=== PATIENT | female | born 1965 | race Caucasian/White ===

== ENCOUNTER 2017-12-07 21:44 | Inpatient (IN) | payer OTHER ==
[2017-12-07] MEDS: ACETAMINOPHEN 650MG/20.3ML CUP NGT (22:23)
[2017-12-07] MEDS: CEFEPIME 2GM/50 ML (PMX) 50 ML IVPB (22:23)
[2017-12-07] MEDS: SODIUM CHLORIDE 0.9% 1L BAG IV* (22:23)
[2017-12-07] MEDS: VANCOMYCIN 1 GM (PMX) 250 ML IVPB (22:24)
[2017-12-07 22:29] LABS: ADD MAN DIFF? NO
[2017-12-07 22:31] LABS: WHITE BLOOD COUNT 15.1 10^3/ul (4.8-10.8)
[2017-12-07 22:31] LABS: BASOPHILS % 0.2 % (0.0-2.0); EOSINOPHILS # 0.1 10^3/ul (0.0-0.5); EOSINOPHILS % 0.4 % (0.0-7.0); HEMATOCRIT 35.8 % (37.0-47.0); HEMOGLOBIN 11.4 g/dl (12.0-16.0); LYMPHOCYTES % 19.8 % (15.0-51.0); MEAN CORPUSCULAR HEMOGLOBIN 27.3 pg (29.0-33.0); MEAN CORPUSCULAR HGB CONC 31.8 g/dl (32.0-37.0); MEAN CORPUSCULAR VOLUME 85.6 fl (82.0-101.0); MEAN PLATELET VOLUME 12.2 fl (7.4-10.4); MONOCYTE # 0.9 10^3/ul (0.3-0.9); NEUTROPHIL # 10.9 10^3/ul (1.6-7.5); NEUTROPHILS % 72.1 % (39.0-77.0); PLATELET COUNT 290 10^3/UL (140-415); RED BLOOD COUNT 4.18 10^6/ul (4.20-5.40); RED CELL DISTRIBUTION WIDTH 18.2 % (11.5-14.5)
[2017-12-07 22:45] LABS: INR 1.11; PROTIME 14.5 Sec (11.9-14.9); PT RATIO 1.1
[2017-12-07 22:46] LABS: PARTIAL THROMBOPLASTIN TIME 37.4 Sec (25.0-35.0)
[2017-12-07 22:56] LABS: LACTIC ACID 1.4 mmol/L (0.5-2.0)
[2017-12-07 23:09] LABS: TROPONIN-I 0.016 ng/ml (0.000-0.120)
[2017-12-07] MEDS: NORepinephrine 8MG/250 ML (PMX 250 ML IV (23:17)
[2017-12-07 23:18] LABS: ALANINE AMINOTRANSFERASE 74 IU/L (13-69); ALBUMIN/GLOBULIN RATIO 1.17; ALKALINE PHOSPHATASE 167 IU/L (42-121); ANION GAP 23 (8-16); ASPARTATE AMINO TRANSFERASE 51 IU/L (15-46); BILIRUBIN,INDIRECT 0.5 mg/dl (0-1.1); BILIRUBIN,TOTAL 0.5 mg/dl (0.2-1.3); BLOOD UREA NITROGEN 75 mg/dl (7-20); CALCIUM 9.8 mg/dl (8.4-10.2); CARBON DIOXIDE 26 mmol/L (21-31); CHLORIDE 98 mmol/L (97-110); CREATININE 2.54 mg/dl (0.44-1.00); GLUCOSE 127 mg/dl (70-220); SODIUM 140 mmol/L (135-144); TOTAL PROTEIN 7.4 g/dl (6.1-8.1)
[2017-12-07 23:29] LABS: AADO2 Arterial 156.4 mmHg (7.0-24.0); Arterial Blood Gas Oxygen Sat 97.1 mmHG (95.0-98.0); Arterial COHb 0.1 % (0.0-3.0); Arterial Fraction of Oxyhgb 96.6 % (93.0-99.0); Arterial HCO3 27.9 mmol/L (22.0-26.0); Arterial MetHb 0.4 % (0.0-1.5); Arterial Total Hemglobin 11.3 g/dl (12.0-18.0); Arterial pCO2 55.1 mmhg (35-45); MODE T-PIECE; Site LB
[2017-12-07 23:39] LABS: POTASSIUM 6.7 mmol/L (3.5-5.1)
[2017-12-07] MEDS: NA BICARBONATE 8.4% 50 ML SYG IV (23:49)
[2017-12-07] MEDS: CA CHLORIDE 10% 10 ML SYRINGE IV (23:49)
[2017-12-08] MEDS ORDERED: ALBUTEROL HFA 8 GM INHALER INH
[2017-12-08] MEDS ORDERED: IPRATROPIUM (HFA) 12.9 GM INHALER INH
[2017-12-08] MEDS ORDERED: NORepinephrine 8MG/250 ML (PMX 250 ML IV
[2017-12-08] MEDS ORDERED: ONDANSETRON 4 MG INJ IV
[2017-12-08 00:05] LABS: ADD UMIC YES; UR ASCORBIC ACID 40 mg/dL (NEGATIVE); UR BILIRUBIN (Dip) NEGATIVE (NEGATIVE); UR BLOOD (Dip) NEGATIVE (NEGATIVE); UR CLARITY SLIGHTLY CLOUDY (CLEAR); UR COLOR YELLOW (YELLOW); UR GLUCOSE (Dip) NEGATIVE (NEGATIVE); UR KETONES (Dip) NEGATIVE (NEGATIVE); UR LEUKOCYTE ESTERASE (Dip) NEGATIVE Leu/ul (NEGATIVE); UR NITRITE (Dip) NEGATIVE (NEGATIVE); UR RBC 0 /HPF (0-5); UR SPECIFIC GRAVITY (Dip) 1.017 (1.003-1.030); UR SQUAMOUS EPITHELIAL CELL FEW /HPF (FEW); UR TOTAL PROTEIN (Dip) 1+ mg/dl (NEGATIVE); UR UROBILINOGEN (Dip) NEGATIVE (NEGATIVE); UR WBC 2 /HPF (0-5)
[2017-12-08 00:26] LABS: LACTIC ACID 0.9 mmol/L (0.5-2.0)
[2017-12-08] MEDS: SOD CHLORIDE 0.9% 1,000 ML IV (00:45)
[2017-12-08 02:19] LABS: ADD MAN DIFF? NO
[2017-12-08 02:20] LABS: BASOPHILS % 0.2 % (0.0-2.0); EOSINOPHILS # 0.1 10^3/ul (0.0-0.5); EOSINOPHILS % 0.6 % (0.0-7.0); HEMATOCRIT 32.9 % (37.0-47.0); HEMOGLOBIN 10.1 g/dl (12.0-16.0); LYMPHOCYTES % 15.9 % (15.0-51.0); MEAN CORPUSCULAR HEMOGLOBIN 26.7 pg (29.0-33.0); MEAN CORPUSCULAR HGB CONC 30.7 g/dl (32.0-37.0); MEAN PLATELET VOLUME 11.5 fl (7.4-10.4); MONOCYTE # 0.4 10^3/ul (0.3-0.9); MONOCYTES % 3.1 % (0.0-11.0); NEUTROPHIL # 9.9 10^3/ul (1.6-7.5); NEUTROPHILS % 78.5 % (39.0-77.0); PLATELET COUNT 277 10^3/UL (140-415); RED BLOOD COUNT 3.78 10^6/ul (4.20-5.40); RED CELL DISTRIBUTION WIDTH 18.2 % (11.5-14.5)
[2017-12-08 02:20] LABS: WHITE BLOOD COUNT 12.6 10^3/ul (4.8-10.8)
[2017-12-08 02:41] LABS: LACTIC ACID 1.4 mmol/L (0.5-2.0)
[2017-12-08 02:44] LABS: IRON 22 ug/dl (35-150)
[2017-12-08 02:46] LABS: ALANINE AMINOTRANSFERASE 74 IU/L (13-69); ALBUMIN 3.4 g/dl (3.3-4.9); ALKALINE PHOSPHATASE 144 IU/L (42-121); ANION GAP 15 (8-16); ASPARTATE AMINO TRANSFERASE 39 IU/L (15-46); BILIRUBIN,INDIRECT 0.7 mg/dl (0-1.1); BILIRUBIN,TOTAL 0.7 mg/dl (0.2-1.3); BLOOD UREA NITROGEN 57 mg/dl (7-20); CALCIUM 9.3 mg/dl (8.4-10.2); CARBON DIOXIDE 25 mmol/L (21-31); CHLORIDE 108 mmol/L (97-110); CREATININE 1.78 mg/dl (0.44-1.00); GLUCOSE 134 mg/dl (70-220); MAGNESIUM 2.3 mg/dl (1.7-2.5); PHOSPHORUS 6.7 mg/dl (2.5-4.9); POTASSIUM 5.4 mmol/L (3.5-5.1); SODIUM 143 mmol/L (135-144); TOTAL PROTEIN 6.8 g/dl (6.1-8.1)
[2017-12-08 02:53] LABS: % IRON SATURATION 9 % SAT (22-52); TOTAL IRON BINDING CAPACITY 258 ug/dl (241-421)
[2017-12-08 03:50] LABS: HEMOGLOBIN A1C 5.9 % (0-5.9)
[2017-12-08 04:55] LABS: POTASSIUM,URINE RANDOM 22.4 mmol/L (25-125)
[2017-12-08 04:55] LABS: SODIUM,URINE RANDOM 35 mmol/L (30-90)
[2017-12-08] MEDS: VANCOMYCIN 1 GM 250 ML IVPB (05:03)
[2017-12-08] MEDS: ACETAMINOPHEN 650MG/20.3ML CUP PO ×2 (07:52→14:07)
[2017-12-08] MEDS ORDERED: CEFEPIME 1GM/50 ML (PMX) 50 ML IVPB (09:00)
[2017-12-08] MEDS ORDERED: VANCOMYCIN IV PER PHARMACY XX (09:00)
[2017-12-08] MEDS: CEFEPIME 1GM/50 ML (PMX) 50 ML IVPB ×2 (09:08→20:52)
[2017-12-08] MEDS: FAMOTIDINE 20 MG INJ IV (09:08)
[2017-12-08] MEDS: HEPARIN 5,000 UNIT/0.5 ML VIAL SC ×2 (09:17→20:52)
[2017-12-08] MEDS: PHENYLephrine 40 MG in DEXTROSE 5% 496 ML IV (09:46)
[2017-12-08] MEDS ORDERED: DEXTROSE 50% 50 ML SYRINGE IV ×2 (10:00)
[2017-12-08] MEDS ORDERED: GLUCOSE GEL 15 GRAM TUBE PO ×2 (10:00)
[2017-12-08] MEDS ORDERED: GLUCOSE GEL 15 GRAM TUBE BUCCAL (10:00)
[2017-12-08] MEDS ORDERED: GLUCAGON 1 MG INJ IM (10:00)
[2017-12-08] MEDS: NA POLYST SULFON 15 GM/60 ML BTL PO ×2 (10:10)
[2017-12-08 11:21] LABS: HEMOGLOBIN A1C 5.9 % (0-5.9)
[2017-12-08 11:29] LABS: CHOLESTEROL 112 mg/dl (100-200)
[2017-12-08 11:29] LABS: CHOL/HDL RATIO 4.1 RATIO; HDL CHOLESTEROL 27 mg/dl (37-92); LDL CHOLESTEROL,CALCULATED 64 mg/dl; TRIGLYCERIDES 107 mg/dl (0-149)
[2017-12-08] MEDS: INSULIN ASPART [NOVOLOG] 3 ML PEN SC ×3 (12:54→21:00)
[2017-12-08] MEDS: LACTATED RINGER'S 1,000 ML IV ×3 (13:11→21:56)
[2017-12-08] MEDS: AZITHROMYCIN 250 MG in SOD CHLORIDE 0.9% 250 ML IVPB (15:37)
[2017-12-09] MEDS: INSULIN ASPART [NOVOLOG] 3 ML PEN SC ×6 (01:00→21:00)
[2017-12-09] MEDS: ACCU-CHEK XX (02:01)
[2017-12-09] MEDS: LACTATED RINGER'S 1,000 ML IV ×4 (04:34→22:30)
[2017-12-09 05:05] LABS: ADD MAN DIFF? NO
[2017-12-09 05:07] LABS: AADO2 Arterial 134.3 mmHg (7.0-24.0); Arterial Base Excess 3.2 mmol/L (-3.0-3); Arterial Blood Gas Oxygen Sat 94.7 mmHG (95.0-98.0); Arterial COHb 0.9 % (0.0-3.0); Arterial Fraction of Oxyhgb 93.6 % (93.0-99.0); Arterial HCO3 31.1 mmol/L (22.0-26.0); Arterial MetHb 0.3 % (0.0-1.5); Arterial Total Hemglobin 13.2 g/dl (12.0-18.0); Arterial pCO2 63.1 mmhg (35-45); MODE TRACH COLLAR; Site LB
[2017-12-09 05:25] LABS: WHITE BLOOD COUNT 9.1 10^3/ul (4.8-10.8)
[2017-12-09 05:25] LABS: BASOPHILS % 0.1 % (0.0-2.0); EOSINOPHILS # 0.4 10^3/ul (0.0-0.5); EOSINOPHILS % 4.2 % (0.0-7.0); HEMATOCRIT 27.7 % (37.0-47.0); HEMOGLOBIN 8.3 g/dl (12.0-16.0); LYMPHOCYTES # 1.3 10^3/ul (0.8-2.9); LYMPHOCYTES % 13.8 % (15.0-51.0); MEAN CORPUSCULAR HEMOGLOBIN 27.1 pg (29.0-33.0); MEAN CORPUSCULAR VOLUME 90.5 fl (82.0-101.0); MEAN PLATELET VOLUME 12.4 fl (7.4-10.4); MONOCYTE # 0.4 10^3/ul (0.3-0.9); MONOCYTES % 4.5 % (0.0-11.0); NEUTROPHILS % 76.7 % (39.0-77.0); PLATELET COUNT 213 10^3/UL (140-415); RED BLOOD COUNT 3.06 10^6/ul (4.20-5.40); RED CELL DISTRIBUTION WIDTH 18.5 % (11.5-14.5)
[2017-12-09 05:29] LABS: LACTIC ACID 0.7 mmol/L (0.5-2.0)
[2017-12-09 05:53] LABS: ALANINE AMINOTRANSFERASE 59 IU/L (13-69); ALBUMIN 3.2 g/dl (3.3-4.9); ALKALINE PHOSPHATASE 112 IU/L (42-121); ANION GAP 9 (8-16); ASPARTATE AMINO TRANSFERASE 39 IU/L (15-46); BILIRUBIN,INDIRECT 0.2 mg/dl (0-1.1); BILIRUBIN,TOTAL 0.2 mg/dl (0.2-1.3); BLOOD UREA NITROGEN 19 mg/dl (7-20); CALCIUM 8.7 mg/dl (8.4-10.2); CARBON DIOXIDE 33 mmol/L (21-31); CHLORIDE 106 mmol/L (97-110); CREATININE 0.71 mg/dl (0.44-1.00); GLUCOSE 103 mg/dl (70-220); POTASSIUM 3.9 mmol/L (3.5-5.1); SODIUM 144 mmol/L (135-144); TOTAL PROTEIN 6.4 g/dl (6.1-8.1)
[2017-12-09 06:06] LABS: FREE THYROXINE INDEX (Calc) 1.24 ug/ml (0.65-3.89); T3 UPTAKE 32.5 % (23.5-40.5); T4 (THYROXINE) 3.8 ug/dl (5.5-11.0)
[2017-12-09] MEDS: VANCOMYCIN 1.5 GM in SOD CHLORIDE 0.9% 250 ML IVPB (06:21)
[2017-12-09 06:53] LABS: PHOSPHORUS 2.9 mg/dl (2.5-4.9)
[2017-12-09] MEDS: CEFEPIME 1GM/50 ML (PMX) 50 ML IVPB ×2 (08:16→21:22)
[2017-12-09] MEDS: FAMOTIDINE 20 MG INJ IV (08:16)
[2017-12-09] MEDS: HEPARIN 5,000 UNIT/0.5 ML VIAL SC ×2 (08:20→21:23)
[2017-12-09 09:01] LABS: AADO2 Arterial 194.7 mmHg (7.0-24.0); Allen Test ACCEPTAB; Arterial Base Excess 5.6 mmol/L (-3.0-3); Arterial Blood Gas Oxygen Sat 97.8 mmHG (95.0-98.0); Arterial COHb 0.3 % (0.0-3.0); Arterial Fraction of Oxyhgb 97.2 % (93.0-99.0); Arterial HCO3 30.9 mmol/L (22.0-26.0); Arterial MetHb 0.3 % (0.0-1.5); Arterial Total Hemglobin 8.7 g/dl (12.0-18.0); Arterial pCO2 49.4 mmhg (35-45); MODE VENT - AC; Site Right Radial
[2017-12-09] MEDS: PHENYLephrine 40 MG in DEXTROSE 5% 496 ML IV (11:14)
[2017-12-09] MEDS: ACETAMINOPHEN 650MG/20.3ML CUP PO ×2 (12:48→21:21)
[2017-12-09] MEDS: AZITHROMYCIN 250 MG in SOD CHLORIDE 0.9% 250 ML IVPB (14:14)
[2017-12-09] MEDS: TOBRAMYCIN 0.3% 5 ML OPH BOTH EYES ×2 (16:53→21:22)
[2017-12-09] MEDS ORDERED: VANCOMYCIN 750 MG in SOD CHLORIDE 0.9% 150 ML IVPB (18:30)
[2017-12-09] MEDS ORDERED: FAMOTIDINE 20 MG INJ IV (21:00)
[2017-12-09] MEDS: FAMOTIDINE 20 MG TAB GTB (21:22)
[2017-12-10] MEDS: INSULIN ASPART [NOVOLOG] 3 ML PEN SC ×6 (01:00→21:00)
[2017-12-10] MEDS: ACCU-CHEK XX (01:20)
[2017-12-10 05:02] LABS: WHITE BLOOD COUNT 6.3 10^3/ul (4.8-10.8)
[2017-12-10 05:02] LABS: ADD MAN DIFF? NO; BASOPHILS % 0.2 % (0.0-2.0); EOSINOPHILS # 0.2 10^3/ul (0.0-0.5); EOSINOPHILS % 3.7 % (0.0-7.0); HEMATOCRIT 24.4 % (37.0-47.0); HEMOGLOBIN 7.4 g/dl (12.0-16.0); LYMPHOCYTES # 1.6 10^3/ul (0.8-2.9); MEAN CORPUSCULAR HEMOGLOBIN 26.6 pg (29.0-33.0); MEAN CORPUSCULAR HGB CONC 30.3 g/dl (32.0-37.0); MEAN CORPUSCULAR VOLUME 87.8 fl (82.0-101.0); MEAN PLATELET VOLUME 11.6 fl (7.4-10.4); MONOCYTE # 0.5 10^3/ul (0.3-0.9); MONOCYTES % 7.5 % (0.0-11.0); NEUTROPHIL # 3.9 10^3/ul (1.6-7.5); NEUTROPHILS % 62.1 % (39.0-77.0); PLATELET COUNT 184 10^3/UL (140-415); RED BLOOD COUNT 2.78 10^6/ul (4.20-5.40); RED CELL DISTRIBUTION WIDTH 17.7 % (11.5-14.5)
[2017-12-10 05:31] LABS: ANION GAP 7 (8-16); BLOOD UREA NITROGEN 12 mg/dl (7-20); CALCIUM 8.5 mg/dl (8.4-10.2); CARBON DIOXIDE 32 mmol/L (21-31); CHLORIDE 111 mmol/L (97-110); CREATININE 0.74 mg/dl (0.44-1.00); GLUCOSE 92 mg/dl (70-220); SODIUM 147 mmol/L (135-144)
[2017-12-10] MEDS: LACTATED RINGER'S 1,000 ML IV (05:51)
[2017-12-10] MEDS: CEFEPIME 1GM/50 ML (PMX) 50 ML IVPB (08:07)
[2017-12-10] MEDS: TOBRAMYCIN 0.3% 5 ML OPH BOTH EYES ×2 (08:07→21:00)
[2017-12-10] MEDS: HEPARIN 5,000 UNIT/0.5 ML VIAL SC ×2 (08:27→22:03)
[2017-12-10] MEDS: ACETAMINOPHEN 650MG/20.3ML CUP PO (11:25)
[2017-12-10] MEDS: POTASSIUM CHLORIDE (SR) 20 MEQ TAB PO (14:04)
[2017-12-10] MEDS: FAMOTIDINE 20 MG TAB GTB (22:01)
[2017-12-11] MEDS: INSULIN ASPART [NOVOLOG] 3 ML PEN SC ×5 (01:00→17:00)
[2017-12-11] MEDS: ACCU-CHEK XX (02:00)
[2017-12-11] MEDS ORDERED: hydrALAzine 20 MG INJ IV (06:00)
[2017-12-11] MEDS: LEVOFLOXACIN 750 MG TABLET GTB (06:35)
[2017-12-11 08:14] LABS: ADD MAN DIFF? NO
[2017-12-11 08:21] LABS: BASOPHILS % 0.1 % (0.0-2.0); EOSINOPHILS # 0.2 10^3/ul (0.0-0.5); HEMATOCRIT 26.5 % (37.0-47.0); HEMOGLOBIN 8.2 g/dl (12.0-16.0); LYMPHOCYTES % 28.5 % (15.0-51.0); MEAN CORPUSCULAR HGB CONC 30.9 g/dl (32.0-37.0); MEAN CORPUSCULAR VOLUME 87.2 fl (82.0-101.0); MEAN PLATELET VOLUME 12.5 fl (7.4-10.4); MONOCYTE # 0.5 10^3/ul (0.3-0.9); MONOCYTES % 6.6 % (0.0-11.0); NEUTROPHIL # 4.2 10^3/ul (1.6-7.5); NEUTROPHILS % 60.9 % (39.0-77.0); PLATELET COUNT 178 10^3/UL (140-415); RED BLOOD COUNT 3.04 10^6/ul (4.20-5.40); RED CELL DISTRIBUTION WIDTH 17.6 % (11.5-14.5)
[2017-12-11] MEDS: HEPARIN 5,000 UNIT/0.5 ML VIAL SC ×2 (08:37→21:57)
[2017-12-11 08:46] LABS: ANION GAP 12 (8-16); BLOOD UREA NITROGEN 10 mg/dl (7-20); CALCIUM 8.5 mg/dl (8.4-10.2); CARBON DIOXIDE 28 mmol/L (21-31); CHLORIDE 106 mmol/L (97-110); CREATININE 0.68 mg/dl (0.44-1.00); GLUCOSE 97 mg/dl (70-220); POTASSIUM 3.2 mmol/L (3.5-5.1); SODIUM 143 mmol/L (135-144)
[2017-12-11] MEDS: TOBRAMYCIN 0.3% 5 ML OPH BOTH EYES ×2 (09:00→21:00)
[2017-12-11] MEDS: ACETAMINOPHEN 650MG/20.3ML CUP PO ×2 (11:20→18:20)
[2017-12-11] MEDS: POTASSIUM CHLORIDE (SR) 20 MEQ TAB PO (11:20)
[2017-12-11] MEDS: PIPER-TAZO 3.375 GM IV (PMX) 100 ML IVPB ×2 (15:54→21:52)
[2017-12-11] MEDS: FAMOTIDINE 20 MG TAB GTB (21:53)
[2017-12-11] MEDS: SOD CHLORIDE 0.9% 500 ML IV (23:35)
[2017-12-12] MEDS: KETOROLAC 30 MG INJ IV (01:15)
[2017-12-12] MEDS: TOBRAMYCIN 0.3% 5 ML OPH BOTH EYES (01:23)
[2017-12-12] MEDS: ACCU-CHEK XX (02:00)
[2017-12-12] MEDS: INSULIN ASPART [NOVOLOG] 3 ML PEN SC ×4 (06:00→18:00)
[2017-12-12] MEDS: PIPER-TAZO 3.375 GM IV (PMX) 100 ML IVPB (06:36)
[2017-12-12] MEDS: LEVOFLOXACIN 750 MG TABLET GTB (06:36)
[2017-12-12] MEDS: ACETAMINOPHEN 650MG/20.3ML CUP PO ×2 (07:36→18:44)
[2017-12-12] MEDS: HEPARIN 5,000 UNIT/0.5 ML VIAL SC ×2 (09:00→21:00)
[2017-12-12 09:11] LABS: ADD MAN DIFF? NO
[2017-12-12 09:23] LABS: BASOPHILS % 0.3 % (0.0-2.0); EOSINOPHILS % 0.2 % (0.0-7.0); HEMOGLOBIN 9.8 g/dl (12.0-16.0); LYMPHOCYTES # 3.1 10^3/ul (0.8-2.9); LYMPHOCYTES % 22.8 % (15.0-51.0); MEAN CORPUSCULAR HEMOGLOBIN 27.2 pg (29.0-33.0); MEAN CORPUSCULAR HGB CONC 31.6 g/dl (32.0-37.0); MEAN CORPUSCULAR VOLUME 86.1 fl (82.0-101.0); MONOCYTE # 0.8 10^3/ul (0.3-0.9); MONOCYTES % 6.1 % (0.0-11.0); NEUTROPHIL # 9.4 10^3/ul (1.6-7.5); NEUTROPHILS % 69.6 % (39.0-77.0); NUCLEATED RED BLOOD CELLS # 0.1 10^3/ul (0.0-0.0); NUCLEATED RED BLOOD CELLS% 0.4 /100WBC (0.0-0.0); PLATELET COUNT 171 10^3/UL (140-415); RED CELL DISTRIBUTION WIDTH 17.2 % (11.5-14.5)
[2017-12-12 09:23] LABS: WHITE BLOOD COUNT 13.5 10^3/ul (4.8-10.8)
[2017-12-12 09:50] LABS: ANION GAP 16 (8-16); BLOOD UREA NITROGEN 16 mg/dl (7-20); CALCIUM 8.4 mg/dl (8.4-10.2); CARBON DIOXIDE 26 mmol/L (21-31); CHLORIDE 103 mmol/L (97-110); CREATININE 1.05 mg/dl (0.44-1.00); GLUCOSE 109 mg/dl (70-220); POTASSIUM 3.9 mmol/L (3.5-5.1); SODIUM 141 mmol/L (135-144)
[2017-12-12] MEDS ORDERED: VANCOMYCIN IV PER PHARMACY XX (11:30)
[2017-12-12] MEDS: VANCOMYCIN 1 GM 250 ML IVPB ×2 (13:00→15:06)
[2017-12-12] MEDS: SOD CHLORIDE 0.9% 100 ML (14:40)
[2017-12-12] MEDS: IOHEXOL 300MG/ML 150 ML BTL (14:40)
[2017-12-12] MEDS: metroNIDAZOLE 500 MG TAB PO ×2 (18:03→22:33)
[2017-12-12] MEDS: FAMOTIDINE 20 MG TAB GTB (22:32)
[2017-12-13] MEDS: VANCOMYCIN 750 MG in SOD CHLORIDE 0.9% 150 ML IVPB ×2 (00:54→12:15)
[2017-12-13] MEDS: TOBRAMYCIN 0.3% 5 ML OPH BOTH EYES ×3 (00:54→20:27)
[2017-12-13] MEDS: ACETAMINOPHEN 650MG/20.3ML CUP PO ×2 (01:48→20:28)
[2017-12-13] MEDS: ACCU-CHEK XX (02:00)
[2017-12-13] MEDS: ACETAMINOPHEN 650MG/20.3ML CUP NGT (04:53)
[2017-12-13] MEDS: INSULIN ASPART [NOVOLOG] 3 ML PEN SC ×4 (06:00→17:19)
[2017-12-13] MEDS: LEVOFLOXACIN 750 MG TABLET GTB (06:03)
[2017-12-13] MEDS: metroNIDAZOLE 500 MG TAB PO ×3 (06:03→22:28)
[2017-12-13 06:52] LABS: ADD MAN DIFF? NO
[2017-12-13 06:54] LABS: BASOPHILS % 0.4 % (0.0-2.0); EOSINOPHILS # 0.2 10^3/ul (0.0-0.5); EOSINOPHILS % 2.2 % (0.0-7.0); HEMATOCRIT 26.9 % (37.0-47.0); HEMOGLOBIN 8.4 g/dl (12.0-16.0); LYMPHOCYTES # 1.3 10^3/ul (0.8-2.9); LYMPHOCYTES % 15.2 % (15.0-51.0); MEAN CORPUSCULAR HEMOGLOBIN 26.9 pg (29.0-33.0); MEAN CORPUSCULAR HGB CONC 31.2 g/dl (32.0-37.0); MEAN CORPUSCULAR VOLUME 86.2 fl (82.0-101.0); MEAN PLATELET VOLUME 11.7 fl (7.4-10.4); MONOCYTE # 0.4 10^3/ul (0.3-0.9); MONOCYTES % 4.6 % (0.0-11.0); NEUTROPHIL # 6.4 10^3/ul (1.6-7.5); NEUTROPHILS % 76.8 % (39.0-77.0); NUCLEATED RED BLOOD CELLS% 0.2 /100WBC (0.0-0.0); RED BLOOD COUNT 3.12 10^6/ul (4.20-5.40); RED CELL DISTRIBUTION WIDTH 17.9 % (11.5-14.5)
[2017-12-13 06:54] LABS: WHITE BLOOD COUNT 8.3 10^3/ul (4.8-10.8)
[2017-12-13 07:01] LABS: PLATELET COUNT 126 10^3/UL (140-415)
[2017-12-13 07:21] LABS: ANION GAP 10 (8-16); BLOOD UREA NITROGEN 13 mg/dl (7-20); CALCIUM 8.8 mg/dl (8.4-10.2); CARBON DIOXIDE 26 mmol/L (21-31); CHLORIDE 109 mmol/L (97-110); CREATININE 0.72 mg/dl (0.44-1.00); GLUCOSE 111 mg/dl (70-220); POTASSIUM 3.4 mmol/L (3.5-5.1); SODIUM 142 mmol/L (135-144)
[2017-12-13 07:25] LABS: PHOSPHORUS 3.2 mg/dl (2.5-4.9)
[2017-12-13] MEDS: HEPARIN 5,000 UNIT/0.5 ML VIAL SC ×2 (09:32→20:31)
[2017-12-13] MEDS: POTASSIUM CHLORIDE 20 MEQ POWDER FOR ORAL SOLN GTB (18:17)
[2017-12-13] MEDS: FAMOTIDINE 20 MG TAB GTB (20:27)
[2017-12-13 23:59] LABS: VANCOMYCIN,TROUGH 9.3 ug/ml (10.0-20.0)
[2017-12-14] MEDS: VANCOMYCIN 1 GM 250 ML IVPB ×2 (01:00→11:51)
[2017-12-14] MEDS: ACCU-CHEK XX (01:06)
[2017-12-14] MEDS: INSULIN ASPART [NOVOLOG] 3 ML PEN SC ×4 (06:00→17:25)
[2017-12-14] MEDS: LEVOFLOXACIN 750 MG TABLET GTB (06:08)
[2017-12-14] MEDS: metroNIDAZOLE 500 MG TAB PO (06:08)
[2017-12-14] MEDS: TOBRAMYCIN 0.3% 5 ML OPH BOTH EYES ×2 (08:53→21:57)
[2017-12-14] MEDS: HEPARIN 5,000 UNIT/0.5 ML VIAL SC ×2 (09:05→21:59)
[2017-12-14] MEDS: ACETAMINOPHEN 650MG/20.3ML CUP PO (21:58)
[2017-12-14] MEDS: FAMOTIDINE 20 MG TAB GTB (21:58)
[2017-12-15] MEDS: VANCOMYCIN 1 GM 250 ML IVPB ×2 (01:57→12:11)
[2017-12-15] MEDS: ACCU-CHEK XX (02:01)
[2017-12-15] MEDS: LEVOFLOXACIN 750 MG TABLET GTB (05:37)
[2017-12-15] MEDS: INSULIN ASPART [NOVOLOG] 3 ML PEN SC ×4 (05:39→17:17)
[2017-12-15 07:38] LABS: ANION GAP 11 (8-16); BLOOD UREA NITROGEN 8 mg/dl (7-20); CALCIUM 8.9 mg/dl (8.4-10.2); CARBON DIOXIDE 27 mmol/L (21-31); CHLORIDE 108 mmol/L (97-110); CREATININE 0.63 mg/dl (0.44-1.00); GLUCOSE 96 mg/dl (70-220); POTASSIUM 3.7 mmol/L (3.5-5.1); SODIUM 142 mmol/L (135-144)
[2017-12-15] MEDS: TOBRAMYCIN 0.3% 5 ML OPH BOTH EYES ×2 (08:23→21:50)
[2017-12-15] MEDS: ACETAMINOPHEN 650MG/20.3ML CUP PO ×2 (08:23→21:50)
[2017-12-15] MEDS: HEPARIN 5,000 UNIT/0.5 ML VIAL SC ×2 (08:33→21:57)
[2017-12-15] MEDS: FAMOTIDINE 20 MG TAB GTB (21:49)
[2017-12-15 23:47] LABS: VANCOMYCIN,TROUGH 10.3 ug/ml (10.0-20.0)
[2017-12-16] MEDS: VANCOMYCIN 1 GM 250 ML IVPB ×2 (00:57→12:06)
[2017-12-16] MEDS: ACCU-CHEK XX (01:37)
[2017-12-16] MEDS: INSULIN ASPART [NOVOLOG] 3 ML PEN SC ×4 (05:15→18:00)
[2017-12-16] MEDS: LEVOFLOXACIN 750 MG TABLET GTB (05:16)
[2017-12-16] MEDS: HEPARIN 5,000 UNIT/0.5 ML VIAL SC ×2 (09:00→21:06)
[2017-12-16] MEDS: TOBRAMYCIN 0.3% 5 ML OPH BOTH EYES ×2 (09:00→21:02)
[2017-12-16] MEDS: FAMOTIDINE 20 MG TAB GTB (21:02)
[2017-12-17] MEDS: VANCOMYCIN 1.25 GM in SOD CHLORIDE 0.9% 250 ML IVPB ×2 (00:35→12:56)
[2017-12-17] MEDS: LABETALOL HCL 20MG INJ IV (00:36)
[2017-12-17] MEDS: ACCU-CHEK XX (00:56)
[2017-12-17] MEDS: LEVOFLOXACIN 750 MG TABLET GTB (05:22)
[2017-12-17] MEDS: INSULIN ASPART [NOVOLOG] 3 ML PEN SC ×4 (05:22→17:29)
[2017-12-17] MEDS: AMLODIPINE 2.5 MG TAB PO (09:38)
[2017-12-17] MEDS: HEPARIN 5,000 UNIT/0.5 ML VIAL SC (09:41)
[2017-12-17] MEDS: TOBRAMYCIN 0.3% 5 ML OPH BOTH EYES (09:42)
== END 2017-12-17 17:50 | DRG 870 ==
LOC: TEL 12-10 20:01 → ICU 23:24 → E/R 21:44
PROC: 05HM33Z Insertion of Infusion Device into Right Internal Jugular Vein, Percutaneous Approach (ICD-10-PCS; principal; 2017-12-07)
PROC: 5A1955Z Respiratory Ventilation, Greater than 96 Consecutive Hours (ICD-10-PCS; 2017-12-07)
DX: A41.9 Sepsis, unspecified organism (principal); J18.9 Pneumonia, unspecified organism; R65.21 Severe sepsis with septic shock; J96.22 Acute and chronic respiratory failure with hypercapnia; J96.21 Acute and chronic respiratory failure with hypoxia; G82.50 Quadriplegia, unspecified; G92 Toxic encephalopathy; G93.49 Other encephalopathy; N17.9 Acute kidney failure, unspecified; E87.0 Hyperosmolality and hypernatremia; R78.81 Bacteremia; R40.3 Persistent vegetative state; E11.9 Type 2 diabetes mellitus without complications; E87.5 Hyperkalemia; I69.265 Other paralytic syndrome following other nontraumatic intracranial hemorrhage, bilateral; I69.298 Other sequelae of other nontraumatic intracranial hemorrhage; D50.9 Iron deficiency anemia, unspecified; E66.01 Morbid (severe) obesity due to excess calories; Z68.38 Body mass index [BMI] 38.0-38.9, adult; Z93.0 Tracheostomy status; H10.9 Unspecified conjunctivitis; R19.7 Diarrhea, unspecified
CPT/HCPCS: 36415; 36600; 70450; 71045; 71260; 74177; 76775; 76937; 80048; 80053; 80061; 80202; 81001; 82436; 82728; 82803; 82962; 83036; 83540; 83605; 83735; 84100; 84133; 84300; 84436; 84479; 84484; 85025; 85610; 85730; 87040; 87045; 87070; 87075; 87081; 87086; 89220; 93005; 94002; 94003; 96374; 96375; 99291-25